=== PATIENT | female | born 1930 | race Caucasian/White ===

== ENCOUNTER 2019-02-06 15:29 | Inpatient (IN) ==
[2019-02-06] MEDS ORDERED: Naloxone 0.4 MG/ML INJ IVP PRN (21:32)
[2019-02-06] MEDS ORDERED: Acetaminophen 325 MG TABLET PO PRN (21:32)
[2019-02-06] MEDS ORDERED: Ipratropium/Albuterol Neb 3 ML IH PRN (21:32)
[2019-02-06] MEDS ORDERED: Ondansetron 4 MG/2 ML VIAL IVP PRN (21:32)
[2019-02-06] MEDS: Levofloxacin 750 MG/150 ML 750 MG/150 ML BAG IVPB SCH (22:39)
[2019-02-06] MEDS: 0.9 % Sodium Chloride w KCl 20 MEQ/1,000 ML MLS IVC SCH (22:40)
--- NOTE | 2019-02-06 23:22 | Internal Med History&Physical ---
Date of Encounter: 02/06/19 Time of Encounter: 20:30 Internal Medicine - H&P: HPI Chief complaint: cough, fever, SOB Admitted From: Hospital to Hospital Transfer Plans for Post Hospital Care: Home History of present illness: Ms. Westbrook is an 88 year old female who presents in transfer from [facility] ER for concerns of shortness of breath, fever, cough, and pneumonia. Workup there included chest x-ray and chest CT noting multiple nodular opacities and findings concerning for pneumonia. She failed outpatient treatment over the last several weeks and has persisted and worsening symptoms. She therefore was transferred to [facility] for ongoing care and need for subspecialty consultation. Additionally, patient requests pulmonary consultation as well. Upon my assessment of the patient shortly after her arrival, she is in no distress. She confirms history of coughing productively, fevers, chills, and worsening dyspnea. Her dyspnea is profound with exertion. She has had no hemoptysis. She has had ill contacts with similar symptoms, especially her . She has had some nausea and vomiting but no diarrhea. She denies any chest pain other than some pleuritic component associated with heavy coughing. She denies any history of asthma or COPD. Her chest CT suggests possible aspiration. However, upon further history, patient denies any history of aspiration, severe reflux, and/or recent or prior stroke to suggest an aspiration process. She has minimal GERD symptoms for which she takes [id number] Tums on a rare PRN basis. Past Med Surg Social Fam HX - Past Medical History Attestation: Yes The following information was validated with the patient. Source: patient, old records reviewed, other ([facility] ER records) Medical history: hypertension, thyroid disease Psychiatric history: anxiety - Past Surgical History Surgical History: breast surgery - Social History Smoking Status: Never smoker Smokeless Tobacco Status: No Alcohol use: none Drug use: none Current living situation: Home, With Family Activity Level: Independent ambulation Recent Out of Country Travel Within the Last 8 Weeks: No - Family History Mother Living Status: Hx Family Cardiac Disorders: No Hx Family Respiratory Disorders: No Father Living Status: Hx Family Respiratory Disorders: No Internal Medicine - H&P: Meds Levothyroxine [Synthroid] 75 mcg PO 0630 05/01/16 [History] Lisinopril [Zestril] 40 mg PO DAILY 06/04/17 [History] Metoprolol [Lopressor] 12.5 mg PO BID 02/06/19 [History] Allergy/AdvReac Type Severity Reaction Status Date / Time Penicillins Allergy Hives Verified 01/05/17 20:25 Sulfa (Sulfonamide Allergy Rash Verified 01/05/17 20:25 Antibiotics) - Constitutional Constitutional: chills, fatigue, fever(s), weakness, no night sweats - EENT Eyes: no blurry vision, no change in vision Ears: no ear pain, no tinnitus Nose, mouth and throat: no nasal congestion, no sinus pressure, no sore throat - Cardiovascular Cardiovascular ROS IM: dyspnea on exertion, no lightheadedness, no paroxysmal nocturnal dyspnea, no syncope - Respiratory Respiratory: cough, dyspnea, dyspnea on exertion, chest congestion, change in phlegm color, pain with cough, no hemoptysis, no wheezing, no excessive phlegm production - Gastrointestinal Gastrointestinal: nausea, vomiting, no abdominal pain, no diarrhea, no hematemesis, no hematochezia, no melena - Genitourinary Genitourinary: no dysuria, no flank pain, no hematuria - Musculoskeletal Musculoskeletal ROS IM: no arthralgias, no back pain - Integumentary Integumentary IM: no rash, no jaundice - Neurological Neurological ROS: no dizziness, no focal weakness, no frequent falls, no headache(s) - Psychiatric Psychiatric: no anxiety, no depression - Endocrine Endocrine IM: no polydipsia, no polyphagia, no polyuria - Allergic/Immunologic Allergic/Immunologic: no wheezing, no GI upset with certain foods - Constitutional Vitals: Temp Pulse Resp BP Pulse Ox 98.3 F 112 4 155/83 96 02/06/19 19:10 02/06/19 19:10 02/06/19 19:10 02/06/19 19:10 02/06/19 19:10 General appearance: Present: cooperative, A&O X 3, pleasant, no acute distress, answers questions appropriately Exam: see below - Head Head exam: Present: atraumatic, normal inspection - Eye Eye exam: Present: EOMI, PERRL. Absent: scleral icterus Pupils: Present: normal accommodation - ENT ENT exam: Present: mucous membranes dry, normal exam, normal oropharynx - Neck Neck exam general surgery: Present: full ROM, supple, trachea midline. Absent: tenderness, nuchal rigidity, thyromegaly - Respiratory Respiratory exam: Present: prolonged expiratory phase, rales (right base), rhonchi. Absent: accessory muscle use, chest wall tenderness, respiratory distress, wheezes, tachypnea Additional comments: +splinting with deep inspiration - Cardiovascular Cardiovascular exam: Present: distant heart sounds, RRR, +S1, +S2. Absent: diastolic murmur, systolic murmur - GI/Abdominal GI/Abdominal exam: Present: normal bowel sounds, soft. Absent: guarding, hepatomegaly, mass, rebound, splenomegaly, tenderness - Extremities Exam Extremities exam: Present: full ROM, normal capillary refill, warm, radial pulses palpable and symmetrical. Absent: calf tenderness, pedal edema, tenderness - Back Exam Back exam: Absent: CVA tenderness (L), CVA tenderness (R) - Neurological Exam Neurological exam: Present: alert, CN II-XII intact, oriented X3, no focal deficits, strengths equal and symetr throughout - Psychiatric Psychiatric exam: Present: normal affect, normal mood - Skin Skin exam: Present: dry, intact, warm Internal Med - H&P Results - Labs Labs: Cardiac Enzymes 02/06/19 Range/Units 22:36 Troponin I 0.03 (< 0.04) ng/mL I reviewed the labs from [place] they include the following: WBC 11.3 Hemoglobin 13.2 Hematocrit 40.7 Platelets 157 Sodium 131 Potassium 3.9 Chloride 100 Carbon Dioxide 23 BUN 14 Creatinine 0.59 Troponin less than 0.03 - Diagnostic Studies CT scan - chest Status: image reviewed by me (nodular opacities noted and concern for LLL process) - Assessment and Plan (1) Pneumonia Current Visit: Yes Status: Acute Assessment and plan: 1. Patient failed outpatient treatment. 2. Continue IV antibiotics, oxygen as needed, aerosols PRN, and supportive measures. 3. Culture sputum and gram stain if able to collect adequate specimen. 4. Consult pulmonology given recurrent pattern and multinodular densities on CT. Qualifiers: Pneumonia type: due to unspecified organism Laterality: unspecified laterality Lung location: unspecified part of lung Qualified Code(s): J18.9 - Pneumonia, unspecified organism (2) Lung nodule, multiple Current Visit: Yes Status: Acute Assessment and plan: 1. Treatment as above. 2. Pulmonary consult for further work-up -- likely invasive. (3) Hypertension Current Visit: Yes Status: Acute Assessment and plan: 1. Continue home meds as appropriate once meds verified. 2. Will order PRN hydralazine. 3. Monitor BP and adjust meds as necessary. Qualifiers: Hypertension type: essential hypertension Qualified Code(s): I10 - Essential (primary) hypertension (4) DVT prophylaxis Current Visit: Yes Status: Acute Assessment and plan: 1. Heparin SQ.
[2019-02-06 23:51] LABS: Adenovirus Not Detected (Not Detect); Bordetella Pertussis Not Detected (Not Detect); Chlamydophila pneumoniae Not Detected (Not Detect); Coronavirus 229E Not Detected (Not Detect); Coronavirus HKU1 Not Detected (Not Detect); Coronavirus NL63 Not Detected (Not Detect); Coronavirus OC43 Not Detected (Not Detect); Human Metapneumovirus Not Detected (Not Detect); Human Rhinovirus/Enterovirus Not Detected (Not Detect); Influenza A Subtype 2009 H1 Not Detected (Not Detect); Influenza A Untypeable Not Detected (Not Detect); Influenza B Not Detected (Not Detect); Mycoplasma pneumoniae Not Detected (Not Detect); Parainfluenza Virus 1 Not Detected (Not Detect); Parainfluenza Virus 2 Not Detected (Not Detect); Parainfluenza Virus 3 Not Detected (Not Detect); Parainfluenza Virus 4 Not Detected (Not Detect); Respiratory Syncytial Virus Not Detected (Not Detect)
[2019-02-07 05:02] LABS: Basophils % 0.3 %; Eosinophils # 0.1 K/mcL (0.0-0.6); Eosinophils % 0.8 %; Hematocrit 35.4 % (35.3-44.9); Hemoglobin 11.8 g/dL (11.5-15.4); Immature Granulocytes % 0.2 % (0-4); Mean Corpuscular HGB Conc 33.3 g/dL (31.6-35.5); Mean Corpuscular Hemoglobin 31.1 pg (28.0-33.3); Mean Corpuscular Volume 93.2 fL (83.0-100.0); Monocytes # 0.8 K/mcL (0.0-1.3); Monocytes % 9.2 %; Neutrophils # 5.8 K/mcL (1.6-8.9); Platelet Count 149 K/mcL (140-400); Red Cell Distribution Width 12.9 % (11.5-14.5); Segmented Neutrophils % 66.5 %
[2019-02-07] MEDS: *HR* Heparin 5,000 UNIT/ML VIAL SQ SCH ×2 (05:12→18:23)
[2019-02-07 05:14] LABS: INR 1.3
[2019-02-07 05:17] LABS: Activated Partial Thrombo Time 42.4 Seconds (26.0-36.0)
[2019-02-07 05:42] LABS: Alanine Aminotransferase 9 Units/L (7-52); Albumin 3.5 g/dL (3.5-5.7); Albumin/Globulin Ratio 1.3 (1.1-2.2); Alkaline Phosphatase 64 Units/L (34-104); Aspartate Amino Transferase 19 Units/L (13-39); BUN/Creatinine Ratio 25 (6-26); Bilirubin,Total 0.6 mg/dL (0.3-1.0); Blood Urea Nitrogen 14 mg/dL (8-23); Calcium 8.8 mg/dL (8.6-10.3); Carbon Dioxide 20 mEq/L (23-29); Chloride 103 mEq/L (98-107); Chol/HDL Ratio 3.2 (0-4.9); Cholesterol 121 mg/dL (< 200); Globulin 2.7 g/dL (2.4-3.5); Glucose 104 mg/dL (70-105); HDL Cholesterol 38 mg/dL (40-59); LDL Cholesterol,Calculated 68 mg/dL (0-99); Magnesium 2.1 mg/dL (1.6-2.6); Potassium 4.1 mEq/L (3.5-5.1); Total Protein 6.2 g/dL (6.4-8.9); Triglycerides 73 mg/dL (< 150); eGFR For Non-African Americans > 60 (> 60)
[2019-02-07 05:46] LABS: Osmolality,Calculated 283 (280-300); Sodium 136 mEq/L (136-145)
--- NOTE | 2019-02-07 08:37 | Internal Med Progress Note ---
Hospitalist Progress Note - Encounter Date of Encounter: 02/07/19 Time of Encounter: 09:40 - Subjective Interval History: awake, no sob. + cough with yellow sputum. denies wheezing. no fevers or chills overnight. + nasal congestion - Exam Vitals: Temp Pulse Resp BP Pulse Ox 98.9 F 87 15 125/68 93 02/07/19 06:24 02/07/19 06:24 02/07/19 06:24 02/07/19 06:24 02/07/19 06:24 Exam: gen- alert, awake,appears stated age cv- reg rate and rhythm, normal s1,s2, no murmurs appreciated, no le edema lungs- ctabl, no wheezing, rhonchi or crackles, diminished left base, normal resp effort on room air neuro- AAOx3, CN grossly intact - Assessment and Plan (1) Pneumonia Current Visit: Yes Status: Acute Assessment and Plan: Organism unknown Patient failed outpatient treatment. -cont levaquin, aerosols PRN -Consulted pulmonology given recurrent pattern and multinodular densities on CT. (2) Lung nodule, multiple Current Visit: Yes Status: Acute Assessment and Plan: pulm consult pending (3) Hypertension Current Visit: Yes Status: Acute Assessment and Plan: -may resume home acei + BB (4) DVT prophylaxis Current Visit: Yes Status: Acute Assessment and Plan: sq hep Internal Medicine: Result - Labs CBC & Chem 7: 02/07/19 03:55 02/07/19 03:55 Labs: Short CBC 02/07/19 Range/Units 03:55 WBC 8.8 (4.3-11.1) K/mcL Hgb 11.8 (11.5-15.4) g/dL Hct 35.4 (35.3-44.9) % Plt Count 149 (140-400) K/mcL Neutrophils # 5.8 (1.6-8.9) K/mcL BMP 02/07/19 03:55 Sodium 136 Potassium 4.1 Chloride 103 Carbon Dioxide 20 L BUN 14 Creatinine 0.55 L Glucose 104 Calcium 8.8 Cardiac Enzymes 02/06/19 02/07/19 Range/Units 22:36 03:55 Troponin I 0.03 0.04 H* (< 0.04) ng/mL Liver Function 02/07/19 Range/Units 03:55 Total Bilirubin 0.6 (0.3-1.0) mg/dL AST 19 (13-39) Units/L ALT 9 (7-52) Units/L Alkaline Phosphatase 64 (34-104) Units/L Albumin 3.5 (3.5-5.7) g/dL - ABG Interpretation ABG results: PT/INR, D-dimer PT 15.0 Seconds (9.4-12.1) H 02/07/19 03:55 Consult Discharge Plan - Plan Referrals: Pippa Paulino, [employer] [Primary Care Provider] - __ (1) Pneumonia Qualifiers: Pneumonia type: due to unspecified organism Laterality: unspecified laterality Lung location: unspecified part of lung Qualified Code(s): J18.9 - Pneumonia, unspecified organism (3) Hypertension Qualifiers: Hypertension type: essential hypertension Qualified Code(s): I10 - Essential (primary) hypertension
[2019-02-07] MEDS: Fluticasone Propionate Nasal 50 MCG/SPRAY BOTTLE NS SCH (13:45)
[2019-02-07] MEDS: 0.9 % Sodium Chloride w KCl 20 MEQ/1,000 ML MLS IVC SCH (13:47)
--- NOTE | 2019-02-07 18:19 | Pulmonology Consult Note ---
Date of Encounter: 02/07/19 Time of Encounter: 08:00 Assessment and Plan (1) Bronchiectasis with (acute) exacerbation Status: Acute I have reviewed CT chest result with the patient and I suspect this is an exacerbation of bronchiectasis and she is on appropriate antibiotic as well as bronchodilators. I will add systemic steroid and explained to the patient about bronchoscopy for diagnostic and therapeutic reasons in the presence of the nurse and she agreed to have it done. We will plan for tomorrow and he patient's nothing by mouth postmidnight. Patient will need outpatient workup such as pulmonary function test and bronchial hygiene will be important. Bronchiectasis in this patient is most likely either from recurrent infections or could be idiopathic. Checking for acute bronchopulmonary aspergillosis will be important as well and obviously any atypical mycobacterial infection. A bronchoscopy is recommended. The procedure , risks, benefits, complications, and expected outcomes have been reviewed. Benefits of diagnosis, as well as risks to include bleeding, infection, pneumothorax which may require surgical intervention, and in a small population. The patient is aware that sometimes test is nondiagnostic. Discussed with patient and agrees to proceed. Thank you for consultation and taking care of all this pleasant patient. (2) Right lower lobe pneumonia Status: Acute Patient is on appropriate antibiotics and clinically she denies any aspiration, however microaspiration could happen and a need work up as outpatient if necessary. Qualifiers: Pneumonia type: due to unspecified organism Qualified Code(s): J18.1 - Lobar pneumonia, unspecified organism History of Present Illness Consult date: 03/10/19 Requesting physician: Benji Marsh Reason for consult: pneumonia Chief complaint: Cough and Fever History of present illness: This is a very pleasant 88-year-old female was transferred from [facility] emergency room complaining of shortness of breath, productive cough, and fever and was diagnosed with pneumonia. Pulmonary consulted for an evaluation and patient also requested pulmonary consultation. Patient had chest x-ray and CT chest with findings concerning for pneumonia. Patient has no significant history of smoking but she has been having recurrent pneumonia. He has noticed her dyspnea is worsening. She denies any history of bronchiectasis in the family and no history of TB. She denies any history of aspiration or acid reflux. No recent travel or having exotic animals. She does have large family. Denies any significant sinus disease or history of sarcoidosis. There is no family history of COPD. She denies any chest pain or hemoptysis. Past Med Surg Social Fam HX - Past Medical History Medical history: hypertension, thyroid disease Psychiatric history: anxiety - Past Surgical History Surgical History: breast surgery Additional surgical history: BREAST SURGERY-MILK GLAND REMOVED - Social History Smoking Status: Never smoker Smokeless Tobacco Status: No Alcohol use: none Drug use: none - Family History Mother Living Status: Hx Family Cardiac Disorders: No Hx Family Respiratory Disorders: No Father Living Status: Hx Family Respiratory Disorders: No Medications and Allergies Levothyroxine [Synthroid] 75 mcg PO 30 05/01/16 [History] Lisinopril [Zestril] 40 mg PO DAILY 06/04/17 [History] Metoprolol [Lopressor] 12.5 mg PO BID 02/06/19 [History] levoFLOXacin [Levaquin] 750 mg PO HS 2 Days #2 tablet 02/09/19 [Rx] predniSONE [PredniSONE] 40 mg PO DAILY #2 tablet 02/09/19 [Rx] Allergy/AdvReac Type Severity Reaction Status Date / Time Penicillins Allergy Hives Verified 02/07/19 22:50 Sulfa (Sulfonamide Allergy Rash Verified 02/07/19 22:50 Antibiotics) All Systems: The remainder of the systems were reviewed and are negative Physical Examination Vital Signs: Refer to nursing General appearance: no acute distress Eyes: nonicteric ENT: oropharynx moist Mallampati (class): 2 Neck: supple Effort: normal Inspection: hyperextended Auscultation: left: clear, right: rhonchi Percussion: bilateral: not dull Tactile fremitus: bilateral: normal Cardiovascular: regular rate and rhythm Gastrointestinal: normoactive bowel sounds, non-distended Extremities: no cyanosis, no edema, no clubbing normal mental status mood appropriate Results - Laboratory Findings CBC and BMP: 02/09/19 05:54 02/09/19 05:54 PT/INR, D-dimer PT 15.0 Seconds (9.4-12.1) H 02/07/19 03:55 Abnormal lab findings: Abnormal lab results RBC 3.80 M/mcL (3.82-4.97) L 02/07/19 03:55 PT 15.0 Seconds (9.4-12.1) H 02/07/19 03:55 APTT 42.4 Seconds (26.0-36.0) H 02/07/19 03:55 Carbon Dioxide 20 mEq/L (23-29) L 02/07/19 03:55 0.55 mg/dL (0.60-1.20) L 02/07/19 03:55 0.04 ng/mL (< 0.04) H* 02/07/19 03:55 6.2 g/dL (6.4-8.9) L 02/07/19 03:55 38 mg/dL (40-59) L 02/07/19 03:55 - Diagnostic Findings CT scan - chest: report reviewed, image reviewed - Clinical Findings Intake & Output: Intake & Output 02/07/19 02/07/19 02/07/19 07:59 15:59 23:59 Intake Total 350 / 1590 1240 / 1590 Output Total 100 / 400 300 / 400 Balance 250 / 1190 940 / 1190 Weight 56.2 kg Consult Discharge Plan - Plan Instructions: Pneumonia, [employer] Reporter (GEN) Referrals: Waqas Forte MD [Partnered Physician] - (Web request entered. Office will call with date and time of appointment.) Pippa Paulino CNP [Primary Care Provider] - (Web request entered. Office will call with date and time of appointment. ) Prescriptions: levoFLOXacin [Levaquin] 750 mg PO HS 2 Days #2 tablet predniSONE [PredniSONE] 40 mg PO DAILY #2 tablet
[2019-02-07] MEDS: Levofloxacin 750 MG/150 ML 750 MG/150 ML BAG IVPB SCH (21:57)
[2019-02-07] MEDS: MethylPREDNISolone 40 MG/ML VIAL IVP SCH (23:31)
[2019-02-08] MEDS: *HR* Heparin 5,000 UNIT/ML VIAL SQ SCH ×2 (04:13→17:34)
[2019-02-08 06:16] LABS: Basophils % 0.2 %; Eosinophils % 0.2 %; Hematocrit 38.4 % (35.3-44.9); Hemoglobin 12.7 g/dL (11.5-15.4); Immature Granulocytes % 0.4 % (0-4); Lymphocytes # 0.9 K/mcL (0.6-4.6); Lymphocytes % 17.4 %; Mean Corpuscular HGB Conc 33.1 g/dL (31.6-35.5); Mean Corpuscular Hemoglobin 30.5 pg (28.0-33.3); Mean Corpuscular Volume 92.3 fL (83.0-100.0); Mean Platelet Volume 10.6 fL (9.4-12.4); Monocytes # 0.1 K/mcL (0.0-1.3); Monocytes % 1.7 %; Neutrophils # 4.2 K/mcL (1.6-8.9); Platelet Count 165 K/mcL (140-400); Red Blood Count 4.16 M/mcL (3.82-4.97); Red Cell Distribution Width 12.8 % (11.5-14.5); Segmented Neutrophils % 80.1 %
[2019-02-08 06:35] LABS: BUN/Creatinine Ratio 17 (6-26); Blood Urea Nitrogen 9 mg/dL (8-23); Calcium 9.4 mg/dL (8.6-10.3); Carbon Dioxide 24 mEq/L (23-29); Chloride 107 mEq/L (98-107); Glucose 182 mg/dL (70-105); Osmolality,Calculated 291 (280-300); Potassium 3.9 mEq/L (3.5-5.1); Sodium 139 mEq/L (136-145); eGFR For Non-African Americans > 60 (> 60)
[2019-02-08] MEDS ORDERED: *HR* Midazolam HCl 5 MG/5 ML VIAL IVP ONE ×2 (07:46→07:58)
[2019-02-08] MEDS ORDERED: *HR* FentaNYL (PF) 100 MCG/2 ML VIAL ONE (07:47)
[2019-02-08] MEDS ORDERED: Lidocaine Viscous Oral Soln 15 ML SOLUTION ONE (07:52)
[2019-02-08] MEDS ORDERED: *HR* EPINEPHrine 1 MG/10 ML SYRINGE INTRATRACH PRN (07:58)
[2019-02-08] MEDS ORDERED: Lidocaine Viscous Oral Soln 15 ML SOLUTION MM ONE (07:58)
[2019-02-08] MEDS ORDERED: Albuterol 2.5 MG/3 ML NEBULIZER IH ONE (07:58)
[2019-02-08] MEDS ORDERED: *HR* FentaNYL (PF) 100 MCG/2 ML VIAL IVP ONE (07:58)
--- NOTE | 2019-02-08 07:58 | Pre-Sedation Evaluation ---
Pre-sedation evaluation - Pre-sedation checklist Date of procedure: 02/08/19 Procedure: Bronchoscopy Recent Vitals: Last Vital Signs Temp 97.9 F 02/08/19 05:07 Pulse 88 02/08/19 05:07 Resp 16 02/08/19 05:07 BP 156/76 02/08/19 05:07 Pulse Ox 95 02/08/19 05:07 H&P (including ROS) documented in medical record: Yes Previous reaction to sedatives/anesthetics: No Dietary Status: NPO after Midnight Dentition: No loose teeth or bridges Possible difficult airway: No ASA Classification *see protocol: CLASS II-Mild systemic disease Plan of Care: Pt appropriate candidate for procedure/moderate/conscious sedation, Risks/benefits of procedure/sedation discussed w/ patient/family
[2019-02-08] MEDS ORDERED: 0.9 % Sodium Chloride 1,000 ML IVC SCH (08:00)
--- NOTE | 2019-02-08 08:14 | Internal Med Progress Note ---
Hospitalist Progress Note - Encounter Date of Encounter: 02/08/19 Time of Encounter: 10:00 - Subjective Interval History: awake, sons present, back from bronch. no sob, dry cough improving, denies wheezing, fevers or chills. - Exam Vitals: Temp Pulse Resp BP Pulse Ox 97.9 F 121 18 191/94 98 02/08/19 05:07 02/08/19 08:11 02/08/19 08:11 02/08/19 08:11 02/08/19 08:11 Exam: gen- alert, awake,appears stated age cv- reg rate and rhythm, normal s1,s2, no murmurs appreciated, no le edema lungs- ctabl, normal resp effort on room air abd- soft, nt, nd, + bs neuro- AAOx3 - Assessment and Plan (1) Pneumonia Current Visit: Yes Status: Acute Assessment and Plan: Organism unknown Patient failed outpatient treatment. -cont levaquin, aerosols PRN -Consulted pulmonology given recurrent pattern and multinodular densities on CT. -s/p bronch- awaiting cx results (2) Lung nodule, multiple Current Visit: Yes Status: Acute Assessment and Plan: as above (3) Hypertension Current Visit: Yes Status: Acute Assessment and Plan: home acei + BB, fu with pcp outpt (4) DVT prophylaxis Current Visit: Yes Status: Acute Assessment and Plan: sq hep Plan of Care Discussed with: patient Internal Medicine: Result - Labs CBC & Chem 7: 02/08/19 05:49 02/08/19 05:49 Labs: Short CBC 02/08/19 Range/Units 05:49 WBC 5.3 (4.3-11.1) K/mcL Hgb 12.7 (11.5-15.4) g/dL Hct 38.4 (35.3-44.9) % Plt Count 165 (140-400) K/mcL Neutrophils # 4.2 (1.6-8.9) K/mcL BMP 02/08/19 05:49 Sodium 139 Potassium 3.9 Chloride 107 Carbon Dioxide 24 BUN 9 Creatinine 0.52 L Glucose 182 H Calcium 9.4 Cardiac Enzymes 02/07/19 Range/Units 13:36 Troponin I < 0.03 (< 0.04) ng/mL - ABG Interpretation ABG results: PT/INR, D-dimer PT 15.0 Seconds (9.4-12.1) H 02/07/19 03:55 Consult Discharge Plan - Plan Referrals: Pippa Paulino, [employer] [Primary Care Provider] - (1) Pneumonia Qualifiers: Pneumonia type: due to unspecified organism Laterality: unspecified laterality Lung location: unspecified part of lung Qualified Code(s): J18.9 - Pneumonia, unspecified organism (3) Hypertension Qualifiers: Hypertension type: essential hypertension Qualified Code(s): I10 - Essential (primary) hypertension
[2019-02-08] MEDS ORDERED: Tetracaine/Benzocaine/Butamben 1 SPRAY AEROSOL MM ONE (08:30)
[2019-02-08] MEDS: Fluticasone Propionate Nasal 50 MCG/SPRAY BOTTLE NS SCH (09:34)
[2019-02-08] MEDS: MethylPREDNISolone 40 MG/ML VIAL IVP SCH ×3 (10:14→23:57)
[2019-02-08] MEDS: Lisinopril 20 MG TABLET PO SCH (10:14)
[2019-02-08 14:30] LABS: Appearance of Body Fluid Cloudy (Clear); Volume of Body Fluid 30 mL
[2019-02-08] MEDS: Levofloxacin 750 MG/150 ML 750 MG/150 ML BAG IVPB SCH (22:16)
[2019-02-09] MEDS: *HR* Heparin 5,000 UNIT/ML VIAL SQ SCH (05:40)
[2019-02-09 06:08] LABS: Basophils % 0.2 %; Hematocrit 39.5 % (35.3-44.9); Hemoglobin 13.1 g/dL (11.5-15.4); Immature Granulocytes % 0.9 % (0-4); Lymphocytes # 1.7 K/mcL (0.6-4.6); Lymphocytes % 14.1 %; Mean Corpuscular HGB Conc 33.2 g/dL (31.6-35.5); Mean Corpuscular Volume 93.6 fL (83.0-100.0); Mean Platelet Volume 10.5 fL (9.4-12.4); Monocytes # 0.3 K/mcL (0.0-1.3); Monocytes % 2.5 %; Platelet Count 192 K/mcL (140-400); Red Blood Count 4.22 M/mcL (3.82-4.97); Red Cell Distribution Width 12.7 % (11.5-14.5); Segmented Neutrophils % 82.3 %
[2019-02-09 06:31] LABS: BUN/Creatinine Ratio 37 (6-26); Blood Urea Nitrogen 23 mg/dL (8-23); Carbon Dioxide 23 mEq/L (23-29); Chloride 107 mEq/L (98-107); Glucose 148 mg/dL (70-105); Osmolality,Calculated 298 (280-300); Potassium 4.1 mEq/L (3.5-5.1); Sodium 141 mEq/L (136-145); eGFR For Non-African Americans > 60 (> 60)
--- NOTE | 2019-02-09 09:10 | Internal Med Progress Note ---
Hospitalist Progress Note - Encounter Date of Encounter: 02/09/19 Time of Encounter: 09:50 - Subjective Interval History: awake, pleasant, no sob, cough cont to improve, no sputum. no wheezing. aware we are waiting on cx results - Exam Vitals: Temp Pulse Resp BP Pulse Ox 97.8 F 81 16 146/87 95 02/09/19 07:51 02/09/19 07:51 02/09/19 07:51 02/09/19 07:51 02/09/19 07:51 Exam: gen- alert, awake,appears stated age cv- reg rate and rhythm, normal s1,s2, no le edema lungs- ctabl, normal resp effort on room air abd- soft, nt, nd, + bs neuro- AAOx3 - Assessment and Plan (1) Pneumonia Current Visit: Yes Status: Acute Assessment and Plan: Organism unknown Patient failed outpatient treatment. s/p bronch- prelim cx results reviewed and normal mark, AFB neg, fungal pending; RLL pna and mucus plug identified as well as bronchietatic changes Consulted pulmonology given recurrent pattern and multinodular densities on CT. -appreciate pulm input and review of studies -cont levaquin to complete oral course outpt with 5 day total steroid treatment on dc -will require outpt PFT and pulm follow up (2) Lung nodule, multiple Current Visit: Yes Status: Acute Assessment and Plan: as above (3) Hypertension Current Visit: Yes Status: Chronic Assessment and Plan: home acei + BB, fu with pcp outpt (4) DVT prophylaxis Current Visit: Yes Status: Acute Assessment and Plan: sq hep Internal Medicine: Result - Labs CBC & Chem 7: 02/09/19 05:54 02/09/19 05:54 Labs: Short CBC 02/09/19 Range/Units 05:54 WBC 12.2 H D (4.3-11.1) K/mcL Hgb 13.1 (11.5-15.4) g/dL Hct 39.5 (35.3-44.9) % Plt Count 192 (140-400) K/mcL Neutrophils # 10.0 H (1.6-8.9) K/mcL BMP 02/09/19 05:54 Sodium 141 Potassium 4.1 Chloride 107 Carbon Dioxide 23 BUN 23 Creatinine 0.62 Glucose 148 H Calcium 10.0 - ABG Interpretation ABG results: PT/INR, D-dimer PT 15.0 Seconds (9.4-12.1) H 02/07/19 03:55 Consult Discharge Plan - Plan Referrals: Pippa Paulino, [facility] [Primary Care Provider] - (1) Pneumonia Qualifiers: Pneumonia type: due to unspecified organism Laterality: unspecified la terality Lung location: unspecified part of lung Qualified Code(s): J18.9 - Pneumonia, unspecified organism (3) Hypertension Qualifiers: Hypertension type: essential hypertension Qualified Code(s): I10 - Essential (primary) hypertension
[2019-02-09] MEDS: Fluticasone Propionate Nasal 50 MCG/SPRAY BOTTLE NS SCH (10:40)
[2019-02-09] MEDS: Lisinopril 20 MG TABLET PO SCH (10:40)
[2019-02-09] MEDS: MethylPREDNISolone 40 MG/ML VIAL IVP SCH (10:40)
[2019-02-09 11:22] VITALS: BP 122/69
--- NOTE | 2019-02-09 13:50 | Discharge Summary ---
- NOTES TO OUTPATIENT PROVIDER Notes to Outpatient Provider: will complete oral levaquin and oral steroid course. bronch with RLL pna, mucus pluggina dn bronchiectasis. Requires outpt pulm follow up and PFTs. Orders not resulted at time of discharge: Pending orders 02/06/19 21:32 Culture,Sputum with Gram Stain [RM] Stat 02/08/19 08:21 AFB Culture, Respiratory [TB] Routine AFB Smear [TB] Routine Culture,Respiratory [RM] Routine Fungal Culture [MYC] Routine 02/08/19 08:40 Cytology [PTH] Routine 02/10/19 04:00 CBC [Complete Blood Count] [HEME] AM 0400 Date of Encounter: 02/09/19 Time of Encounter: 09:50 - Discharge Diagnosis (1) Pneumonia Priority: Primary Status: Acute Assessment and Plan: Organism unknown Patient failed outpatient treatment. s/p bronch- prelim cx results reviewed and normal mark, AFB neg, fungal pending; RLL pna and mucus plug identified as well as bronchietatic changes Consulted pulmonology given recurrent pattern and multinodular densities on CT. -appreciate pulm input and review of studies -cont levaquin to complete oral course outpt with 5 day total steroid treatment on dc (had leukocytosis with steroids, but afebrile and clinically back to baseline) -will require outpt PFT and pulm follow up Qualifiers: Pneumonia type: due to unspecified organism Laterality: unspecified laterality Lung location: unspecified part of lung Qualified Code(s): J18.9 - Pneumonia, unspecified organism (2) Lung nodule, multiple Priority: Secondary Status: Acute Assessment and Plan: as above (3) Hypertension Priority: Secondary Status: Chronic Assessment and Plan: home acei + BB, fu with pcp outpt Qualifiers: Hypertension type: essential hypertension Qualified Code(s): I10 - Essential (primary) hypertension (4) DVT prophylaxis Priority: Secondary Status: Acute Hospital course: Ms. Westbrook is a 88 year old female with a pmhx of hypertension, thyroid disease who presented n transfer from [facility] ER for concerns of shortness of breath, fever, cough, and pneumonia. chest CT noted multiple nodular opacities. She had an uncomplicated course with details found in the diagnoses section of this document. Bronchoscopy preformed by [facility] showed RLL pna, mucus plugging. She was discharged to home in stable condition with oral Levaquin, steroids and outpt pulm referral as she needs outpt PFTs. Discharge discussed with: patient, case management, independent beauty consultant - Time Spent with Patient Total time spent providing and/or coordinating discharge services: Time spent: Greater than 30 minutes (40 min) - Discharge Medications Prescriptions: New levoFLOXacin [Levaquin] 750 mg PO HS 2 Days #2 tablet predniSONE [PredniSONE] 40 mg PO DAILY #2 tablet Continued Levothyroxine [Synthroid] 75 mcg PO 0630 Lisinopril [Zestril] 40 mg PO DAILY Metoprolol [Lopressor] 12.5 mg PO BID Home Medications: Levothyroxine [Synthroid] 75 mcg PO 0630 05/01/16 [History] Lisinopril [Zestril] 40 mg PO DAILY 06/04/17 [History] Metoprolol [Lopressor] 12.5 mg PO BID 02/06/19 [History] levoFLOXacin [Levaquin] 750 mg PO HS 2 Days #2 tablet 02/09/19 [Rx] predniSONE [PredniSONE] 40 mg PO DAILY #2 tablet 02/09/19 [Rx] Allergies/Adverse Reactions: Allergy/AdvReac Type Severity Reaction Status Date / Time Penicillins Allergy Hives Verified 02/07/19 22:50 Sulfa (Sulfonamide Allergy Rash Verified 02/07/19 22:50 Antibiotics) Date of admission: 02/06/19 21:32 Primary care physician: Pippa Paulino CNP Consults: 02/06/19 21:32 Consult to Pulmonology [CONS] Routine Consulting Provider: [facility] Reason for Consult: recurrent pneumonia; lung nodules on CT Call Completed: No 02/07/19 09:47 Consult to Nurse Navigator [CONS] Routine Comment: pneumonia Discharging clinician: Natty Marroquin - Constitutional Vitals: Temp Pulse Resp BP Pulse Ox 98.5 F 66 18 122/69 94 02/09/19 11:21 02/09/19 11:21 02/09/19 11:21 02/09/19 11:21 02/09/19 11:21 Exam: gen- alert, awake,appears stated age cv- reg rate and rhythm, normal s1,s2, no le edema lungs- ctabl, normal resp effort on room air abd- soft, nt, nd, + bs neuro- AAOx3 - Patient Status Disposition: Home, Self-Care Condition: Good Overall status at discharge: patient is back to baseline - Discharge Instructions Follow Up With: Pippa Paulino, PILAR [Primary Care Provider] - Waqas Forte MD [Partnered Physician] - - Diet and Activity Activity: increase activity as tolerated Diet: advance to your usual diet
[2019-02-09] MEDS ORDERED: levoFLOXacin 750 MG TABLET PO SCH (20:00)
[2019-02-09] MEDS ORDERED: MethylPREDNISolone 40 MG/ML VIAL IVP SCH (22:00)
== END 2019-02-09 15:34 | disposition home or self-care (01) | DRG 194 ==
LOC: 3ANU → SUATTDRO 21:32
PROVIDERS: ADMIT Internal Medicine Nephrology; ATTEND Internal Medicine
PROC: ENDOBRF (2019-02-08 15:30)